=== PATIENT | female | born 1995 | race Caucasian/White ===

== ENCOUNTER 2024-10-02 08:46 | Emergency (ER) | payer BC ==
[2024-10-02] MEDS ORDERED: Ondansetron 4 MG Tab.DIS PO ONE (09:49)
== END 2024-10-02 10:00 | disposition left against medical advice (07) ==
LOC: JD.ED 08:46
DX: E28.2 Polycystic ovarian syndrome (principal); K62.5 Hemorrhage of anus and rectum; F17.210 Nicotine dependence, cigarettes, uncomplicated; Z86.16 Personal history of COVID-19
CPT/HCPCS: 99283